=== PATIENT | male | born 1960 | race Caucasian/White ===

== ENCOUNTER 2024-09-08 03:37 | Emergency (ER) | payer OTHER, SELFPAY ==
[2024-09-08] VITALS (20 sets, daily range): BP systolic 116–180; BP diastolic 65–123; PULSE 68–91; RESP 16–18; TEMP 37.1; O2SAT 93–98; BMI 28.8
[2024-09-08] MEDS: LIDOCAINE VISCOUS 2% 15 ML SOLUTION PO (04:01)
--- NOTE | 2024-09-08 04:28 | ED_ITS ---
HPI - Nausea/Vomiting/Diarrhea <Edyta Pisano MD - Last Filed: 09/09/24 01:41> General Chief complaint: Nausea/Vomiting/Diarrhea Stated complaint: Sore throat Time Seen by Provider: 09/08/24 03:41 Source: patient and family Mode of arrival: Ambulatory History of Present Illness HPI Narrative: 64-year-old male with history of ankylosing spondylitis, hypertension, hyperlipidemia presents by private vehicle from home for several hours of sore throat. Patient states that he ate dinner normally without any issue. Later that evening he began to feel and acid reflux like sensation. As the night progressed he felt a progressive sore throat and trouble swallowing. His symptoms persisted and he asked his to drive him to the ER for evaluation. Patient also states that his voice is somewhat different than his baseline. This has never happened before. Denies tobacco use, reports occasional alcohol use. Related Data Home Medications Medication Instructions Recorded Confirmed amlodipine 5 mg tablet 5 mg PO DAILY 09/08/24 09/08/24 rosuvastatin 5 mg tablet 5 mg PO DAILY 09/08/24 09/08/24 Allergies Allergy/AdvReac Type Severity Reaction Status Date / Time lisinopril AdvReac Cough Verified 09/08/24 03:54 Review of Systems <Dylan Javed MD - Last Filed: 09/10/24 09:27> Review of Systems Narrative: GENERAL: Negative chills, fatigue, malaise, fever, sweats. HEENT: Negative sinus pain, ear pain, positive sore throat RESPIRATORY: Negative dyspnea, cough CARDIOVASCULAR: Negative chest pain, palpitations GASTROINTESTINAL: Negative nausea, vomiting, negative abdominal pain : Negative dysuria, frequency, hematuria MUSCULOSKELETAL: Negative muscle or bony pain SKIN: Negative rash, skin lesions NEUROLOGIC: Negative weakness, numbness ROS Unobtainable: All systems reviewed & are unremarkable except as noted in HPI and below Patient History <Edyta Pisano MD - Last Filed: 09/09/24 01:41> Social History Smoking Status: Never smoker Smoking Status: Never smoker Exam <Edyta Pisano MD - Last Filed: 09/09/24 01:41> Initial Vital Signs Initial Vital Signs: Vital Signs Temperature 98.7 F 09/08/24 03:55 Pulse Rate 75 09/08/24 03:55 Respiratory Rate 16 09/08/24 03:55 Blood Pressure 150/89 H 09/08/24 03:55 Pulse Oximetry 98 09/08/24 03:55 Oxygen Delivery Method Room Air 09/08/24 03:55 Const: Awake, alert, no acute distress, nontoxic appearing HEENT: Airway patent, mucous membranes moist, no trismus, mild posterior pharyngeal erythema without obvious edema or exudates Cardiac: regular rate, regular rhythm RESP: unlabored, clear bilaterally, no wheezing Skin: Warm, Dry, intact, no rashes Neuro: AO x3, CN II-XII grossly intact, moves all extremities <Dylan Javed MD - Last Filed: 09/10/24 09:27> Initial Vital Signs Initial Vital Signs: Vital Signs Temperature 98.7 F 09/08/24 03:55 Pulse Rate 75 09/08/24 03:55 Respiratory Rate 16 09/08/24 03:55 Blood Pressure 150/89 H 09/08/24 03:55 Pulse Oximetry 98 09/08/24 03:55 Oxygen Delivery Method Room Air 09/08/24 03:55 Course <Edyta Pisano MD - Last Filed: 09/09/24 01:41> Orders Ordered: Discontinued Medications Amlodipine Besylate (Amlodipine 5 Mg Tablet) 5 mg PO NOW ONE Stop: 09/08/24 14:17 Last Admin: 09/08/24 14:20 Dose: 5 mg Documented By: EDY Dexamethasone (Dexamethasone 10 Mg/Ml Vial) 10 mg IV NOW ONE Stop: 09/08/24 05:40 Last Admin: 09/08/24 05:47 Dose: 10 mg Documented By: [email or web address] Dexamethasone (Dexamethasone 10 Mg/Ml Vial) 10 mg IV NOW ONE Stop: 09/08/24 12:20 Last Admin: 09/08/24 12:38 Dose: 10 mg Documented By: EDY Ampicillin Sodium/Sulbactam (Sodium 3 gm/ Sodium Chloride) 100 mls @ 200 mls/hr IV NOW ONE Stop: 09/08/24 06:00 Last Infusion: 09/08/24 07:37 Dose: Infused Documented By: Admin: 09/08/24 06:55 Dose: 200 mls/hr Documented By: [email or web address] Sodium Chloride (Normal Saline 0.9%) 1,000 mls @ 75 mls/hr IV CONT KATLYN Last Infusion: 09/08/24 14:58 Dose: Infused Documented By: Admin: 09/08/24 10:31 Dose: 75 mls/hr Documented By: EDY Ampicillin Sodium/Sulbactam (Sodium 3 gm/ Sodium Chloride) 100 mls @ 200 mls/hr IV NOW ONE Stop: 09/08/24 12:20 Last Infusion: 09/08/24 13:10 Dose: Infused Documented By: Admin: 09/08/24 12:38 Dose: 200 mls/hr Documented By: RB Lidocaine HCl (Lidocaine Viscous 2% 15 Ml Solution) 15 ml PO NOW ONE Stop: 09/08/24 03:52 Last Admin: 09/08/24 04:01 Dose: 15 ml Documented By: [email or web address] Vital Signs Vital signs: Vital Signs - 8 hr 09/08/24 07:10 09/08/24 07:30 09/08/24 07:30 Pulse Rate 68 70 Respiratory Rate 18 Blood Pressure 132/75 Pulse Oximetry 96 96 09/08/24 07:48 09/08/24 07:48 09/08/24 08:00 Pulse Rate 69 Respiratory Rate Blood Pressure 129/83 128/83 Pulse Oximetry 96 09/08/24 08:00 09/08/24 08:30 09/08/24 08:31 Pulse Rate 76 77 Respiratory Rate Blood Pressure 180/83 H Pulse Oximetry 96 96 09/08/24 08:31 09/08/24 09:03 09/08/24 09:15 Pulse Rate 77 80 77 Respiratory Rate Blood Pressure Pulse Oximetry 96 93 96 09/08/24 09:15 09/08/24 09:30 09/08/24 09:30 Pulse Rate 72 Respiratory Rate Blood Pressure 136/73 125/70 Pulse Oximetry 95 09/08/24 10:00 09/08/24 10:00 09/08/24 10:31 Pulse Rate 75 73 Respiratory Rate Blood Pressure 116/65 Pulse Oximetry 94 96 09/08/24 10:31 09/08/24 11:00 09/08/24 11:00 Pulse Rate 78 Respiratory Rate Blood Pressure 128/80 125/78 Pulse Oximetry 94 09/08/24 11:30 09/08/24 11:30 09/08/24 12:00 Pulse Rate 88 88 Respiratory Rate Blood Pressure 134/88 Pulse Oximetry 97 96 09/08/24 12:30 09/08/24 12:30 09/08/24 13:00 Pulse Rate 87 Respiratory Rate Blood Pressure 146/88 H 153/89 H Pulse Oximetry 97 09/08/24 13:00 09/08/24 13:30 09/08/24 13:30 Pulse Rate 88 89 Respiratory Rate Blood Pressure 161/123 H Pulse Oximetry 96 95 09/08/24 14:00 09/08/24 14:00 09/08/24 14:30 Pulse Rate 91 H Respiratory Rate Blood Pressure 167/100 H 144/75 H Pulse Oximetry 96 09/08/24 14:30 Pulse Rate 86 Respiratory Rate Blood Pressure Pulse Oximetry 96 <Dylan Javed MD - Last Filed: 09/10/24 09:27> Orders Ordered: Discontinued Medications Amlodipine Besylate (Amlodipine 5 Mg Tablet) 5 mg PO NOW ONE Stop: 09/08/24 14:17 Last Admin: 09/08/24 14:20 Dose: 5 mg Documented By: EDY Dexamethasone (Dexamethasone 10 Mg/Ml Vial) 10 mg IV NOW ONE Stop: 09/08/24 05:40 Last Admin: 09/08/24 05:47 Dose: 10 mg Documented By: [email or web address] Dexamethasone (Dexamethasone 10 Mg/Ml Vial) 10 mg IV NOW ONE Stop: 09/08/24 12:20 Last Admin: 09/08/24 12:38 Dose: 10 mg Documented By: EDY Ampicillin Sodium/Sulbactam (Sodium 3 gm/ Sodium Chloride) 100 mls @ 200 mls/hr IV NOW ONE Stop: 09/08/24 06:00 Last Infusion: 09/08/24 07:37 Dose: Infused Documented By: Admin: 09/08/24 06:55 Dose: 200 mls/hr Documented By: [email or web address] Sodium Chloride (Normal Saline 0.9%) 1,000 mls @ 75 mls/hr IV CONT KATLYN Last Infusion: 09/08/24 14:58 Dose: Infused Documented By: Admin: 09/08/24 10:31 Dose: 75 mls/hr Documented By: RB Ampicillin Sodium/Sulbactam (Sodium 3 gm/ Sodium Chloride) 100 mls @ 200 mls/hr IV NOW ONE Stop: 09/08/24 12:20 Last Infusion: 09/08/24 13:10 Dose: Infused Documented By: Admin: 09/08/24 12:38 Dose: 200 mls/hr Documented By: EDY Lidocaine HCl (Lidocaine Viscous 2% 15 Ml Solution) 15 ml PO NOW ONE Stop: 09/08/24 03:52 Last Admin: 09/08/24 04:01 Dose: 15 ml Documented By: [email or web address] Vital Signs Vital signs: Vital Signs - 8 hr 09/08/24 07:10 09/08/24 07:30 09/08/24 07:30 Pulse Rate 68 70 Respiratory Rate 18 Blood Pressure 132/75 Pulse Oximetry 96 96 09/08/24 07:48 09/08/24 07:48 09/08/24 08:00 Pulse Rate 69 Respiratory Rate Blood Pressure 129/83 128/83 Pulse Oximetry 96 09/08/24 08:00 09/08/24 08:30 09/08/24 08:31 Pulse Rate 76 77 Respiratory Rate Blood Pressure 180/83 H Pulse Oximetry 96 96 09/08/24 08:31 09/08/24 09:03 09/08/24 09:15 Pulse Rate 77 80 77 Respiratory Rate Blood Pressure Pulse Oximetry 96 93 96 09/08/24 09:15 09/08/24 09:30 09/08/24 09:30 Pulse Rate 72 Respiratory Rate Blood Pressure 136/73 125/70 Pulse Oximetry 95 09/08/24 10:00 09/08/24 10:00 09/08/24 10:31 Pulse Rate 75 73 Respiratory Rate Blood Pressure 116/65 Pulse Oximetry 94 96 09/08/24 10:31 09/08/24 11:00 09/08/24 11:00 Pulse Rate 78 Respiratory Rate Blood Pressure 128/80 125/78 Pulse Oximetry 94 09/08/24 11:30 09/08/24 11:30 09/08/24 12:00 Pulse Rate 88 88 Respiratory Rate Blood Pressure 134/88 Pulse Oximetry 97 96 09/08/24 12:30 09/08/24 12:30 09/08/24 13:00 Pulse Rate 87 Respiratory Rate Blood Pressure 146/88 H 153/89 H Pulse Oximetry 97 09/08/24 13:00 09/08/24 13:30 09/08/24 13:30 Pulse Rate 88 89 Respiratory Rate Blood Pressure 161/123 H Pulse Oximetry 96 95 09/08/24 14:00 09/08/24 14:00 09/08/24 14:30 Pulse Rate 91 H Respiratory Rate Blood Pressure 167/100 H 144/75 H Pulse Oximetry 96 09/08/24 14:30 Pulse Rate 86 Respiratory Rate Blood Pressure Pulse Oximetry 96 MDM - Nausea/Vomiting/Diarrhea <Edyta Pisano MD - Last Filed: 09/09/24 01:41> Lab Data 09/08/24 04:50 09/08/24 04:50 Labs: Lab Results 09/08/24 Range/Units 04:50 WBC 9.8 (4.5-11.0) X10^3/uL RBC 5.03 (4.5-5.9) X10^6/uL Hgb 14.7 (13.5-17.5) g/dL Hct 43.2 (41-53) % MCV 85.9 (80-100) fL MCH 29.2 (26-34) PG MCHC 34.0 (30-36) % RDW 13.8 (11.6-14.8) % Plt Count 261 (150-400) X10^3/uL Neut % (Auto) 83.3 H (50-75) % Lymph % (Auto) 9.5 L (25-40) % Richardson % (Auto) 6.0 (3-14) % Eos % (Auto) 0.8 L (2-4) % Baso % (Auto) 0.4 (0-2) % Neut # (Auto) 8200 H (5665-5017) /uL Lymph # (Auto) 900 L (7674-4270) /uL Richardson # (Auto) 600 (0-900) /uL Eos # (Auto) 100 (0-450) /uL Baso # (Auto) 0 (0-100) /uL Sodium 135 L (137-145) mmol/L Potassium 4.4 (3.4-5.1) mmol/L Chloride 106 (98-107) mmol/L Carbon Dioxide 25 (22-32) mmol/L BUN 19 (9-20) mg/dL Creatinine 1.01 (0.66-1.25) mg/dL Estimated GFR > 60 (>60) mL/min BUN/Creatinine Ratio 18.8 (6-22) Glucose 115 H (80-110) mg/dL Calcium 9.4 (8.4-10.2) mg/dL Total Bilirubin 0.5 (0.2-1.3) mg/dL AST 30 (17-59) IU/L ALT 27 (<50) IU/L Alkaline Phosphatase 72 (38-126) U/L Total Protein 7.0 (6.3-8.2) g/dL Albumin 4.1 (3.5-5.0) g/dL Globulin 2.9 (1.7-4.1) g/dL Albumin/Globulin Ratio 1.4 (1.0-2.8) MDM Narrative Medical decision making narrative: Nontoxic appearing patient with several hours of symptoms. Patient occasionally spits into emesis bag, but was able to tolerate swallowing viscous lidocaine. No obvious signs of abscess or airway narrowing. Laboratory work, CT imaging to be ordered for full assessment. Laboratory work reviewed, WBC count 9.8, hemoglobin 14.7, platelet count 261, sodium 135, potassium 4.4, creatinine 1.01, normal liver enzymes. CT neck soft tissue with contrast shows epiglottitis with mild upper airway narrowing. Case discussed with Dr. Tracey of ENT, who recommended a dose of Decadron and Unasyn and then reassessment. If patient feels markedly better than he could potentially follow up outpatient in clinic today, however this would need to be run by Dr. Tracey prior to discharge. If patient feels that he was worsening he should be admitted for observation. Patient and informed of CT imaging results and plan. Patient states that after receiving Decadron he already feels ?50% ?better. Plan to keep patient for observation for at least another 1-2 hours. 0700 - Dr. Tracey reviewed CT imaging - recommends observation for additional steroids, antibiotics to be on the safe side. Willing to see as consult in hosptial. Patient and in agreement to admission at this time. <Dylan Javed MD - Last Filed: 09/10/24 09:27> Lab Data Labs: Lab Results 09/08/24 Range/Units 04:50 WBC 9.8 (4.5-11.0) X10^3/uL RBC 5.03 (4.5-5.9) X10^6/uL Hgb 14.7 (13.5-17.5) g/dL Hct 43.2 (41-53) % MCV 85.9 (80-100) fL MCH 29.2 (26-34) PG MCHC 34.0 (30-36) % RDW 13.8 (11.6-14.8) % Plt Count 261 (150-400) X10^3/uL Neut % (Auto) 83.3 H (50-75) % Lymph % (Auto) 9.5 L (25-40) % Richardson % (Auto) 6.0 (3-14) % Eos % (Auto) 0.8 L (2-4) % Baso % (Auto) 0.4 (0-2) % Neut # (Auto) 8200 H (7817-2096) /uL Lymph # (Auto) 900 L (6131-6119) /uL Richardson # (Auto) 600 (0-900) /uL Eos # (Auto) 100 (0-450) /uL Baso # (Auto) 0 (0-100) /uL Sodium 135 L (137-145) mmol/L Potassium 4.4 (3.4-5.1) mmol/L Chloride 106 (98-107) mmol/L Carbon Dioxide 25 (22-32) mmol/L BUN 19 (9-20) mg/dL Creatinine 1.01 (0.66-1.25) mg/dL Estimated GFR > 60 (>60) mL/min BUN/Creatinine Ratio 18.8 (6-22) Glucose 115 H (80-110) mg/dL Calcium 9.4 (8.4-10.2) mg/dL Total Bilirubin 0.5 (0.2-1.3) mg/dL AST 30 (17-59) IU/L ALT 27 (<50) IU/L Alkaline Phosphatase 72 (38-126) U/L Total Protein 7.0 (6.3-8.2) g/dL Albumin 4.1 (3.5-5.0) g/dL Globulin 2.9 (1.7-4.1) g/dL Albumin/Globulin Ratio 1.4 (1.0-2.8) Imaging Data CT soft tissue neck: Radiologist's Impression: [address] [address] [address] Scan Report Signed Patient: Dylan Holcomb MR#: [id number] : 1960 Acct:[id number] Age/Sex: 64 / M Date of Service: 09/08/24 Loc: ED Accession Number: [id number] Procedure: CT soft tissue neck w con Ordering Provider: Edyta Pisano MD PROCEDURE: CT SOFT TISSUE NECK W CON INDICATIONS: sore throat, voice changes x tonight TECHNIQUE: After the administration of intravenous contrast, 3.0 mm axial sections acquired from the sella to the aortic arch. Additional oblique axial 3.0 mm sections acquired through the pharynx. 3 mm thick coronal and sagittal reformats were generated. For radiation dose reduction, the following was used: automated exposure control. COMPARISON: None. FINDINGS: Image quality: Excellent. Lymph nodes: No enlarged lymph nodes seen throughout the neck. Vessels: Visualized vasculature appears patent. Neck spaces: Enlargement of the lingual and palatine tonsils. Mild thickening of the epiglottis. Glands: The parotid and submandibular glands appear normal. Thyroid gland is unremarkable. Miscellaneous: Visualized brain and orbits appear normal. Lung apices appear clear. Superficial soft tissues appear normal. Bones: No suspicious bony lesions. Visualized sinuses and mastoids appear unremarkable. IMPRESSION: Narrowing of the hypopharynx, due to lingual and palatine enlargement and mild thickening of the epiglottis. Agree with preliminary report. Dictated by: Perez Lam M.D. on 09/08/2024 at 7:31 Approved by: Perez Lam M.D. on 09/08/2024 at 7:34 [facility] Narrative Medical decision making narrative: Nontoxic appearing patient with several hours of symptoms. Patient occasionally spits into emesis bag, but was able to tolerate swallowing viscous lidocaine. No obvious signs of abscess or airway narrowing. Laboratory work, CT imaging to be ordered for full assessment. Laboratory work reviewed, WBC count 9.8, hemoglobin 14.7, platelet count 261, sodium 135, potassium 4.4, creatinine 1.01, normal liver enzymes. CT neck soft tissue with contrast shows epiglottitis with mild upper airway narrowing. Case discussed with Dr. Tracey of ENT, who recommended a dose of Decadron and Unasyn and then reassessment. If patient feels markedly better than he could potentially follow up outpatient in clinic today, however this would need to be run by Dr. Tracey prior to discharge. If patient feels that he was worsening he should be admitted for observation. Patient and informed of CT imaging results and plan. Patient states that after receiving Decadron he already feels ?50% ?better. Plan to keep patient for observation for at least another 1-2 hours. 0700 - Dr. Tracey reviewed CT imaging - recommends observation for additional steroids, antibiotics to be on the safe side. Willing to see as consult in hosptial. Patient and in agreement to admission at this time. September 08, 2024 at 7:[address] Javed: Sign out from Dr. Pisano. ENT, Dr. Tracey has been contacted. Patient should be admitted for observation. For stable epiglottitis. Antibiotics have been started. Hospitalist needs to be contacted for admission. Dr. Tracey will see patient this afternoon. Airways intact otherwise. 9:00 a.m.. I did speak with hospitalist here, dr quiles, he has declined to accept patient due to airway needs if emergent and anesthesia and ENT. 12:20 p.m.. I spoke with [facility] hospitalist dr mccurdy, and ent dr gaines, they will accept patient 12:30 p.m.. I spoke with Dr. Tracey again and I spoke with patient. We have been communicating and patient feels much better and really does not want to be transferred to [facility] if he can be seen at 3:20 p.m. today as scheduled with Dr. Tracey. Dr. Tracey would like to see him in the office this afternoon. He can be discharged from the ER directly to the office at 3:00 p.m.. Repeat Unasyn and Decadron will be given. Patient has eaten here. No trouble swallowing no trouble breathing not requiring supplemental oxygen. He states he feels much better than he did this morning. 12:45 p.m.. Patient has declined transfer to [facility]. He feels much better. He would like to see Dr. Tracey as scheduled at 3:20 p.m.. We will keep him here until 3:00 p.m.. 3:00 p.m.. Airway intact. Patient feels much better. He desires discharge to go to Dr. Tracey office now. Discharge Plan Departure Patient Disposition: Home Clinical Impression: Acute epiglottitis Qualifiers: Airway obstruction: without obstruction Qualified Code(s): J05.10 - Acute epiglottitis without obstruction Activity Restrictions/Additional Instructions: Please go directly to Dr. Tracey office now. He is expecting you across the street. Return immediately if worse if any questions or concerns or trouble breathing or swallowing. Prescriptions: No Action amlodipine 5 mg tablet 5 mg PO DAILY rosuvastatin 5 mg tablet 5 mg PO DAILY Referrals: Adriano Tracey MD [Physician] - Stand Alone Forms: Patient Portal/API/Survey
[2024-09-08 05:04] LABS: Add Manual Diff / Slide Review NO; Basophils Absolute Auto 0 /uL (0-100); Basophils Percent Auto 0.4 % (0-2); Eosinophils Absolute Auto 100 /uL (0-450); Eosinophils Percent Auto 0.8 % (2-4); Hematocrit 43.2 % (41-53); Hemoglobin 14.7 g/dL (13.5-17.5); Lymphocytes Absolute Auto 900 /uL (1100-4500); Lymphocytes Percent Auto 9.5 % (25-40); Mean Corpuscular Hemoglobin 29.2 PG (26-34); Mean Corpuscular Volume 85.9 fL (80-100); Monocytes Absolute Auto 600 /uL (0-900); Neutrophils Absolute Auto 8200 /uL (1500-7000); Neutrophils Percent Auto 83.3 % (50-75); Platelet Count 261 X10^3/uL (150-400); Red Blood Cell Count 5.03 X10^6/uL (4.5-5.9); Red Cell Distribution Width 13.8 % (11.6-14.8); White Blood Cell Count 9.8 X10^3/uL (4.5-11.0)
[2024-09-08 05:24] LABS: Alanine Aminotransferase 27 IU/L (<50); Albumin 4.1 g/dL (3.5-5.0); Albumin Globulin Ratio 1.4 (1.0-2.8); Alkaline Phosphatase 72 U/L (38-126); Aspartate Aminotransferase 30 IU/L (17-59); BUN Creatinine Ratio 18.8 (6-22); Bilirubin Total 0.5 mg/dL (0.2-1.3); Blood Urea Nitrogen 19 mg/dL (9-20); Calcium 9.4 mg/dL (8.4-10.2); Carbon Dioxide 25 mmol/L (22-32); Chloride 106 mmol/L (98-107); Estimated Glomerular Filt Rate > 60 mL/min (>60); Globulin 2.9 g/dL (1.7-4.1); Glucose 115 mg/dL (80-110); HEMOLYSIS < 15 (0-50); Potassium 4.4 mmol/L (3.4-5.1); Sodium 135 mmol/L (137-145)
[2024-09-08] MEDS: DEXAMETHASONE 10 MG/ML VIAL IV ×2 (05:47→12:38)
[2024-09-08] MEDS: AMPICILLIN/SULBACTAM 3 GM 3 GM in SODIUM CHLORIDE 0.9% 100 ML IV ×2 (06:55→12:38)
--- NOTE | 2024-09-08 07:00 | PC.NURSE ---
Pt reports he feels like he has something stuck in his throat. states difficult to swallow including saliva. he forced himself to throw up without relief of the feeling something was stuck in his throat
--- NOTE | 2024-09-08 08:03 | PM.CALLCOV.1 ---
Call Coverage Note Note Date of Patient Contact: 09/08/24 Narrative of Care Provided: Was asked to review this patient for admission to [facility]. This is a 64 year old male with apparent epiglottitis. I have discussed with anesthesia circulation clerk here, there is no in house anesthesia available after hours and ENT is available but also not rapidly either during the day or after hours. The concern for this patient is that in epiglottitis rapid deterioration is the predominant reason for observation, and if this occurs here there is a lack of available support services to manage his airway appropriately. At this time recommend transfer to higher level of care.
--- NOTE | 2024-09-08 09:52 | PC.NURSE ---
Hospital Call List for Transfer Fax Line is Currently down, had to use digital faxing [phone]: [facility], spoke to Sandy, patient is on wait list but they are currently boarding in their ED 0854: [facility], spoke to Kamar, patient is on wait list but they are currently boarding in their ED 0925: [facility], spoke to Matilda, patient on wait list but has a current wait list that is 24+ hours long 0934: [facility], spoke with Rachna, patient is on wait list
[2024-09-08] MEDS: SODIUM CHLORIDE 0.9% 1,000 ML 75 ML IV (10:31)
[2024-09-08] MEDS: AMLODIPINE 5 MG TABLET PO (14:20)
== END 2024-09-08 15:05 | disposition home or self-care (01) ==
PROVIDERS: Emergency Medicine; Emergency Provider Emergency Medicine
DX: J05.10 Acute epiglottitis without obstruction (principal)
CPT/HCPCS: 36415; 70491; 80053; 85025; 96361; 96365; 96366; 99284; J0295; J1100; Q9967

== ENCOUNTER 2024-10-09 20:23 | Emergency (ER) | payer OTHER, SELFPAY ==
[2024-10-09 20:29] VITALS: BP 142/78; PULSE 92; RESP 18; TEMP 39.2; O2SAT 95; BMI 28.0
[2024-10-09] MEDS: IBUPROFEN 400 MG TABLET PO (20:40)
[2024-10-09 20:54] VITALS: BP 134/79; PULSE 91; RESP 18; TEMP 39.6; O2SAT 96
[2024-10-09 21:00] VITALS: BP 132/75; PULSE 94; O2SAT 95
[2024-10-09 21:25] LABS: Influenza A - CEPHEID Flu A POSITIVE (NEGATIVE); Influenza B - CEPHEID Flu B NEGATIVE (NEGATIVE); Respiratory Syncytial Virus Negative (Negative)
[2024-10-09 21:30] VITALS: BP 117/70; PULSE 87; O2SAT 95
[2024-10-09 21:41] VITALS: BP 113/67; PULSE 84; RESP 16; TEMP 37.9; O2SAT 94
[2024-10-09 21:41] LABS: COVID-19 CEPHEID 4-PLEX PCR Negative (Negative)
--- NOTE | 2024-10-09 21:49 | ED_ITS ---
HPI - URI/Sore Throat General Chief Complaint: Upper Respiratory Symptoms Stated Complaint: weakness, tiredness, fever Time Seen by Provider: 10/09/24 21:39 Source: patient Mode of arrival: Ambulatory History of Present Illness HPI Narrative: 64-year-old male without any significant past medical history presents to the emergency department for flu-like symptoms. He states that for the past 2 days he has been experiencing extreme myalgias, brain fog, cough, fevers and chills, states that he has not taken any medication for his symptoms, he also states that she has had decreased appetite secondary to this but he denies any nausea vomiting abdominal pain or diarrhea. Denies any recent travel denies any known sick contacts. Denies any other symptoms such as chest pain shortness of breath abdominal pain or any other GI/ symptoms time. He states that he is not having any difficulty swallowing breathing tolerating his secretions no sore throat, he states that he was diagnosed with epiglottitis previously and therefore he was worried that this might be a reoccurrence but he states this is not similar to when he initially presented for these symptoms previously. Related Data Home Medications Medication Instructions Recorded Confirmed amlodipine 5 mg tablet 5 mg PO DAILY 09/08/24 09/08/24 rosuvastatin 5 mg tablet 5 mg PO DAILY 09/08/24 09/08/24 Previous Rx's Medication Instructions Recorded albuterol sulfate 90 mcg/actuation 2 inh inhalation QID PRN shortness 10/09/24 breath activated powder inhaler of breath or wheezing #1 ea methylprednisolone 4 mg tablets in 4 mg PO DAILY #21 ea 10/09/24 a dose pack (Medrol (Matthew)) Allergies Allergy/AdvReac Type Severity Reaction Status Date / Time lisinopril AdvReac Cough Verified 09/08/24 03:54 Review of Systems Review of Systems Narrative: General: Positive fever chills myalgias HEENT: Denies headache, eye drainage, eye irritation, head trauma, sore throat, voice change Cardiovascular: Denies any chest pain, palpitations, shortness of breath, tachycardia Respiratory: Denies any shortness of breath, cough, wheeze, stridor GI/: Denies any abdominal pain, nausea, vomiting, diarrhea, bright red blood per rectum, melanotic stools, urinary frequency, urinary retention, dysuria, hematuria MSK: Denies any joint pain, swelling Skin: Denies any rashes, lesions, discoloration Neuro: Positive brain fog, Denies any headache, lightheadedness, dizziness, fainting, weakness Psych: Denies SI/HI Patient History Social History Smoking Status: Never smoker Smoking Status: Never smoker Exam Narrative Exam Narrative: General: Cooperative, comfortable, well-developed, not in acute distress HEENT: Normocephalic, atraumatic, PERRLA, normal sclera, eyelids normal, Neck: Active full range of motion, atraumatic Chest: Normal to inspection, negative crepitus, no overlying erythema ecchymosis Respiratory: Positive cough, Normal respiratory effort, not in acute respiratory distress, clear to auscultation bilaterally negative wheeze, tachypnea, rhonchi, rales Cardiology: Regular rate rhythm negative gallop, murmur, rubs GI/: Normal to inspection, soft, nonrigid, no tenderness to palpation, exam deferred MSK: Full range of active range of motion of all 4 extremities, atraumatic Skin: No rashes lesions noted Neuro: Alert awake oriented x3, moves all 4 extremities spontaneously, cranial nerves intact, able to answer all questions appropriately follows commands appropriately Psych: Cooperative, negative suicidal or homicidal ideations Initial Vital Signs Initial Vital Signs: Vital Signs Temperature 102.6 F H 10/09/24 20:29 Pulse Rate 92 H 10/09/24 20:29 Respiratory Rate 18 10/09/24 20:29 Blood Pressure 142/78 H 10/09/24 20:29 Pulse Oximetry 95 10/09/24 20:29 Oxygen Delivery Method Room Air 10/09/24 20:29 Course Orders Ordered: ED Orders 10/09/24 20:41 Covid-19 + FLU A/B + RSV - PCR Stat Discontinued Medications Ibuprofen (Ibuprofen 400 Mg Tablet) 400 mg PO NOW ONE Stop: 10/09/24 20:38 Last Admin: 10/09/24 20:40 Dose: 400 mg Documented By: OSMIN Vital Signs Vital signs: Vital Signs - 8 hr 10/09/24 20:29 10/09/24 20:54 10/09/24 21:00 Temperature 102.6 F H 103.2 F H Pulse Rate 92 H 91 H 94 H Respiratory Rate 18 18 Blood Pressure 142/78 H 134/79 Pulse Oximetry 95 96 95 Oxygen Delivery Method Room Air Room Air 10/09/24 21:00 10/09/24 21:30 10/09/24 21:30 Temperature Pulse Rate 87 Respiratory Rate Blood Pressure 132/75 117/70 Pulse Oximetry 95 Oxygen Delivery Method 10/09/24 21:41 10/09/24 21:41 Temperature 100.2 F H Pulse Rate 84 Respiratory Rate 16 Blood Pressure 113/67 Pulse Oximetry 94 Oxygen Delivery Method Room Air MDM - URI/Sore Throat Differential Diagnosis Differential diagnosis: Likely upper respiratory infection, bronchitis and other (COVID, flu, RSV) Lab Data Labs: Lab Results 10/09/24 Range/Units 20:41 SARS-CoV-2 (PCR) Negative (Negative) Influenza A (RT-PCR) Flu a positive H (NEGATIVE) Influenza B (RT-PCR) Flu b negative (NEGATIVE) RSV (PCR) Negative (Negative) MDM Narrative Medical decision making narrative: 64-year-old male with no significant past medical history presents for flu-like symptoms ongoing persistent for the past 2 days, patient was noted to be influenza A positive. Patient did have fever upon arrival defervesce after administration of medication here. Patient did not requiring any supplemental oxygen here. Patient coughing on exam but otherwise no expiratory wheezes on auscultation. Patient will be discharged home with symptomatic relief for influenza A/bronchitis, patient was given strict return precautions he verb alized understanding of this and agrees to being discharged home with outpatient follow up Discharge Plan Departure Patient Disposition: Home Clinical Impression: Influenza A Instructions: DI for Influenza -- Adult Activity Restrictions/Additional Instructions: Please follow up with your primary care doctor Please read the discharge instructions sheet carefully and bring all papers to all doctor follow-up visits, as it may contain information that your doctor may want to see. Disease processes change and evolve, if your symptoms worsen or if you develop any new symptoms that are concerning to you please return for evaluation. Your evaluation today does not show any evidence of any life- threatening/serious illnesses requiring admission to the hospital or surgery. Please follow-up with your doctor for re-evaluation in approximately 1 day. Seek immediate medical attention for any worrisome symptoms. *If you do not have a primary care provider please contact the [facility] Resource line at [phone]. They will ask some questions about your medical history and help get you set up with a doctor in the community. Prescriptions: New methylprednisolone [Medrol (Matthew)] 4 mg tablets,dose pack 4 mg PO DAILY Qty: 21 0RF albuterol sulfate 90 mcg/actuation aerosol powdr breath activated 2 inh inhalation QID PRN (Reason: shortness of breath or wheezing) Qty: 1 0RF No Action amlodipine 5 mg tablet 5 mg PO DAILY rosuvastatin 5 mg tablet 5 mg PO DAILY Referrals: Miscellaneous,Doctor, MD [Primary Care Provider] - Stand Alone Forms: Patient Portal/API/Survey, Work Release Note
== END 2024-10-09 22:09 | disposition home or self-care (01) ==
PROVIDERS: Emergency Provider Student in an Organized Health Care Education/Training Program
DX: J10.1 Influenza due to other identified influenza virus with other respiratory manifestations (principal); R05.9 Cough, unspecified
CPT/HCPCS: 0241U; 99283